=== PATIENT | female | born 1955 ===

== ENCOUNTER 2017-07-07 10:33 | Emergency (ER) | payer MEDICARE ==
[2017-07-07 11:20] VITALS: RESP 18; TEMP 98.3; BMI 28.3
--- NOTE | 2017-07-07 11:51 | ED PDOC ---
Arrival/HPI - General Chief Complaint: Trauma Time Seen by Provider: 07/07/17 11:16 Historian: Patient, Family - History of Present Illness Narrative History of Present Illness (Text): 07/07/17 11:32 A 61 year old female, whose past medical history includes diabetes, hypertension , and hyperlipidemia, presents to the emergency department complaining of right shoulder, right posterior ribs, and right mid back pain s/p fall yesterday. Patient reports fell to due weakness and pain in legs b/l. 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 Patient states hitting right side and notes head trauma. Patient denies any LOC, chest pain, shortness of breath, or any other complaints at this time. Also, patient mentions she does not take any bloodthinners. PMD: Dr. Menchaca Time/Duration: 24 hours Past Medical History - Provider Review Nursing Documentation Reviewed: Yes - Infectious Disease Hx of Infectious Diseases: None - Tetanus Immunization Tetanus Immunization: Up to Date - Cardiac Hx Hypertension: Yes - Pulmonary Hx Respiratory Disorders: Yes Hx Pneumonia: Yes Hx Sleep Apnea: Yes (Does not use CPAP anymore) - Neurological Hx Neurological Disorder: Yes Hx Dizziness: Yes - HEENT Hx HEENT Disorder: Yes (Wears Rx glasses) - Endocrine/Metabolic Hx Diabetes Mellitus Type 2: Yes - Musculoskeletal/Rheumatological Hx Falls: No - Psychiatric Hx Depression: No Hx Emotional Abuse: No Hx Physical Abuse: No Hx Substance Use: No - Surgical History Hx Hysterectomy: Yes Hx Joint Replacement: Yes (knees) Other/Comment: Breast reduction. Breast biopsy - Suicidal Assessment Feels Threatened In Home Enviroment: No Family/Social History - Physician Review Nursing Documentation Reviewed: Yes Family/Social History: No Known Family HX Smoking Status: Never Smoked Hx Alcohol Use: No Hx Substance Use: No Hx Substance Use Treatment: No Allergies/Home Meds Allergies/Adverse Reactions: Allergies No Known Allergies Allergy (Verified 03/25/16 13:28) Home Medications: Home Meds Medication Instructions Recorded Confirmed Amlodipine Besylate 10 mg PO DAILY 06/01/13 03/25/16 Aspirin 81 mg PO DAILY 06/01/13 03/25/16 Metformin HCl 1,000 mg PO BID 06/01/13 03/25/16 Carvedilol [Coreg] 25 mg PO DAILY 02/21/16 03/25/16 GlipiZIDE [Glipizide] 10 mg PO DAILY 02/21/16 03/25/16 Lisinopril [Zestril] 5 mg PO DAILY 02/21/16 03/25/16 Simvastatin 20 mg PO DAILY 02/21/16 03/25/16 Review of Systems - Physician Review All systems were reviewed & negative as marked: Yes - Review of Systems Respiratory: absent: SOB Cardiovascular: absent: Chest Pain Musculoskeletal: Back Pain (mid right back pain), Other (right shoulder pain, and right posterior rib pain.) Neurological: absent: Other (no LOC) Physical Exam Vital Signs Reviewed: Yes Vital Signs Temp Pulse Resp BP Pulse Ox 07/07/17 14:00 70 18 127/83 100 07/07/17 12:47 61 18 131/69 99 07/07/17 11:17 98.3 F 65 18 133/74 99 Temperature: Afebrile Blood Pressure: Normal Pulse: Regular Respiratory Rate: Normal Appearance: Positive for: Well-Appearing Pain Distress: None Mental Status: Positive for: Alert and Oriented X 3 - Systems Exam Head: Present: Atraumatic, Normocephalic Neck: Present: Normal Range of Motion. No: MIDLINE TENDERNESS Respiratory/Chest: Present: Clear to Auscultation, Good Air Exchange. No: Respiratory Distress, Accessory Muscle Use Cardiovascular: Present: Regular Rate and Rhythm, Normal S1, S2. No: Murmurs Abdomen: No: Tenderness, Distention, Peritoneal Signs Back: Present: Normal Inspection. No: Midline Tenderness Upper Extremity: Present: Normal Inspection. No: Cyanosis, Edema Lower Extremity: Present: Normal Inspection, NORMAL PULSES. No: Edema, CALF TENDERNESS, Vero's Sign Neurological: Present: GCS=15, CN II-XII Intact, Speech Normal Skin: Present: Warm, Dry, Normal Color. No: Rashes Psychiatric: Present: Alert, Oriented x 3, Normal Insight, Normal Concentration Medical Decision Making ED Course and Treatment: 07/07/17 11:36 Impression: 61 year old female with s/p fall right shoulder, right posterior ribs, and right-mid back pain. Physical exam shows no midline tenderness to neck /back; full ROM to upper/lower extremities. Differential Diagnosis included but are not limited to: Fall r/o Fracture Plan: -- Thoracic Spinal X-Ray -- Lumbar Spinal X-Ray -- Right Ribs and Chest X-Ray -- Right Shoulder X-Ray -- Reassess and disposition -- No LOC. No indication for CT Head Prior Visits: Notes and results from previous visits were reviewed. Patient was last seen in the emergency department on 03/25/2016 for nondominant left trapezius and elbow bite. Patient was discharged home. Progress Notes: 07/07/2017 12:41 Thoracic Spinal X-Ray IMPRESSION: Normal radiographs of the thoracic spine. Dictator: David Thomas MD 07/07/2017 12:47 Shoulder X-Ray IMPRESSION: Normal radiographs of the right shoulder. Dictator: David Thomas MD 07/07/2017 12:46 Ribs X-Ray IMPRESSION: Unremarkable radiographs of the chest and right ribs. No right rib fracture. Dictator: David Thomas MD 07/07/2017 12:45 Lumbar Spinal X-Ray IMPRESSION: Mild degenerative changes. Dictator: David Thomas MD 14:00 - Patient's xrays were reviewed with patient. Symptoms improved. She will follow up with primary care doctor as an outpatient. She was advised to return to the ED if symptoms worsen or any other concern. - RAD Interpretation Radiology Orders: 07/07/17 11:36 DORSAL (THORACIC) SPINE [RAD] Stat LS SPINE WITH OBL > 18 YRS OLD [RAD] Stat RIBS RIGHT & PA CHEST [RAD] Stat SHOULDER RIGHT [RAD] Stat - Medication Orders Current Medication Orders: Discontinued Medications Tramadol HCl (Ultram) 50 mg PO STAT STA Stop: 07/07/17 11:39 Last Admin: 07/07/17 12:05 Dose: 50 mg MARIELY Pain Assessment Document 07/07/17 12:05 HI (Rec: 07/07/17 12:28 HI [id number]) Pain Reassessment Is this a pain reassessment? No Sleep Is patient sleeping during reassessment? No Presence of Pain Presence of Pain Yes Location Left, Right or Bilateral Right Description Description Constant - Scribe Statement The provider has reviewed the documentation as recorded by the Tavo Josue Provider Scribe Attestation: All medical record entries made by the Scribe were at my direction and personally dictated by me. I have reviewed the chart and agree that the record accurately reflects my personal performance of the history, physical exam, medical decision making, and the department course for this patient. I have also personally directed, reviewed, and agree with the discharge instructions and disposition. Disposition/Present on Arrival - Present on Arrival Any Indicators Present on Arrival: No History of DVT/PE: No History of Uncontrolled Diabetes: No Urinary Catheter: No History of Decub. Ulcer: No History Surgical Site Infection Following: None - Disposition Have Diagnosis and Disposition been Completed?: Yes Diagnosis: Muscle strain, Fall Disposition: HOME/ ROUTINE Disposition Time: 14:00 Patient Plan: Discharge Condition: IMPROVED Discharge Instructions (ExitCare): Muscle Strain Additional Instructions: Ms Avila, thank you for letting us take care of you today. Your provider was Dr. Sanchez. You were treated for Muscular strain/contusion. The emergency medical care you received today was directed at your acute symptoms. If you were prescribed any medication, please fill it and take as directed. It may take several days for your symptoms to resolve. Return to the Emergency Department if your symptoms worsen, do not improve, or if you have any other problems. Please contact your doctor or call one of the physicians/clinics you have been referred to that are listed on the Patient Visit Information form that is included in your discharge packet. Bring any paperwork you were given at discharge with you along with any medications you are taking to your follow up visit. Our treatment cannot replace ongoing medical care by a primary care provider (PCP) outside of the emergency department. Thank you for allowing the [facility] team to be part of your care today. If you had an X-Ray or CT scan: A Radiologist will review the ED reading if any change in treatment is needed we will contact you. If you had a blood, urine, or wound culture: It will take several days for the results, if any change in treatment is needed we will contact you. If you had an STI test: It will take 48 hours for the results. Please call after 1 week if you have not heard back. Prescriptions: traMADol [Ultram] 50 mg PO Q6H PRN #10 tab PRN Reason: Pain, Moderate (4-7) Referrals: Adrien Menchaca MD [Family Provider] - Follow up with primary Forms: [employer] (Turkish), WORK NOTE
--- NOTE | 2017-07-07 12:43 | RAD ---
HISTORY: fall r/o fx COMPARISON: No prior. FINDINGS: BONES: Alignment maintained. No fracture. DISC SPACES: Normal. SOFT TISSUES: Normal. OTHER FINDINGS: None. IMPRESSION: Normal radiographs of the thoracic spine.
--- NOTE | 2017-07-07 12:47 | RAD ---
PROCEDURE: Radiographs of the Lumbar Spine. HISTORY: fall r/o fx COMPARISON: No prior. FINDINGS: BONES: Normal alignment. No listhesis. No fracture. DISC SPACES: Unremarkable. OTHER FINDINGS: Facet degeneration is seen at L5-S1 IMPRESSION: Mild degenerative changes
--- NOTE | 2017-07-07 12:48 | RAD ---
PROCEDURE: Radiographs of the Chest and Right Ribs. HISTORY: fall r/o fx COMPARISON: None available. TECHNIQUE: Frontal radiograph of the chest and multiple oblique radiographs of the right ribs were obtained. FINDINGS: RIGHT RIBS: No fracture or focal lesion visualized. LUNGS: Clear. PLEURA: No pneumothorax or pleural fluid. CARDIOVASCULAR: Normal sized heart. No pulmonary vascular congestion. OTHER FINDINGS: None. IMPRESSION: Unremarkable radiographs of the chest and right ribs. No right rib fracture.
--- NOTE | 2017-07-07 12:49 | RAD ---
PROCEDURE: Radiographs of the Right Shoulder HISTORY: fall r/o fx COMPARISON: 03/21/2017 FINDINGS: BONES: Normal. No fracture. JOINTS: Normal. Glenohumeral and acromioclavicular joints preserved. No osteoarthritis. SOFT TISSUES: Normal. OTHER FINDINGS: None. IMPRESSION: Normal radiographs of the right shoulder.
[2017-07-07 14:02] VITALS: BP 127/83; PULSE 70; O2SAT 100
== END 2017-07-07 14:02 | disposition home or self-care (01) ==
LOC: ED 10:33
DX: T14.8XXA Other injury of unspecified body region, initial encounter (principal); W01.0XXA Fall on same level from slipping, tripping and stumbling without subsequent striking against object, initial encounter; Y92.9 Unspecified place or not applicable

== ENCOUNTER 2017-07-31 18:51 | Inpatient (IN) | payer MEDICARE, OTHER ==
[2017-07-31 18:59] VITALS: BMI 27.4
[2017-07-31] MEDS ORDERED: Sodium Chloride 0.9% 1,000 ML IV ONE (19:27)
[2017-07-31 20:04] LABS: GRAN # 4.59 (1.4-6.5); GRAN % 85.8 % (50.0-68.0); HEMOGLOBIN 13.4 g/dL (12.0-16.0); LYMPH # 0.5 (1.2-3.4); LYMPH % 8.4 % (22.0-35.0); MEAN CELL VOLUME 79.1 fl (80.0-105.0); MEAN CORPUSCULAR HEMOGLOBIN 26.2 pg (25.0-35.0); MEAN CORPUSCULAR HGB CONC 33.2 g/dl (31.0-37.0); MEAN PLATELET VOLUME 10.6 fl (7.0-11.0); MONO # 0.3 (0.1-0.6); MONO % 5.8 % (1.0-6.0); RBC 5.11 10^6/uL (3.5-6.1); WHITE BLOOD COUNT 5.4 10^3/ul (4.5-11.0)
[2017-07-31 20:12] LABS: PH,URINE 5.5 (4.7-8.0); URINE APPEARANCE SL CLOUDY (CLEAR); URINE BILIRUBIN MODERATE (NEGATIVE); URINE BLOOD LARGE (NEGATIVE); URINE COLOR YELLOW (YELLOW); URINE GLUCOSE (UA) 500 mg/dL (NEGATIVE); URINE LEUKOCYTE ESTERASE SMALL Leu/uL (NEGATIVE); URINE PROTEIN 30 mg/dL (<30 mg/dL); URINE UROBILINOGEN 0.2 E.U./dL (<1 E.U./dL)
[2017-07-31 20:21] LABS: ALBUMIN 3.8 g/dL (3.0-4.8); ALT/SGPT 26 U/L (7-56); AST/SGOT 26 U/L (14-36); BLOOD UREA NITROGEN 38 mg/dL (7-21); CALCIUM 9.2 mg/dL (8.4-10.5); GFR AFRICAN-AMERICAN 46; GFR NON-AFRICAN AMERICAN 38
[2017-07-31 20:24] LABS: TROPONIN I < 0.01 ng/mL
[2017-07-31 20:34] LABS: URINE BACTERIA MANY (NEG); URINE RBC 25 - 30 /hpf (0-2)
[2017-07-31 20:35] LABS: FREE T4 1.33 ng/dL (0.78-2.19)
[2017-07-31 20:36] LABS: URINE AMORPHOUS SEDIMENT FEW; URINE COARSE GRANULAR CAST TRACE /hpf (0-2)
[2017-07-31 20:49] LABS: T3 0.95 ng/mL (0.97-1.69)
[2017-07-31] MEDS ORDERED: Iohexol 350 MG/100 ML VIAL ONE (21:06)
--- NOTE | 2017-07-31 21:08 | ED PDOC ---
Arrival/HPI - General Chief Complaint: Weakness/Neurological Deficit Time Seen by Provider: 07/31/17 19:03 Historian: Patient - History of Present Illness Narrative History of Present Illness (Text): 07/31/17 21:34 A 61 year old female, with n o significant past medical history, presents to the emergency department for a complaint of 1 week duration generalized weakness , mild dizziness, nausea, and questionable fever. She notes decreased appetite. The patient denies chills, chest pain, shortness of breath, dyspnea on exertion , cough, abdominal pain, vomiting, diarrhea, back pain, neck pain, urinary/ bowel changes, vaginal bleeding/ discharge, hematochezia, hematuria or any other complaint. PMD: Dr. Menchaca Time/Duration: 1 week Symptom Onset: Sudden Symptom Course: Unchanged Activities at Onset: Rest, Light Context: Home Past Medical History - Provider Review Nursing Documentation Reviewed: Yes - Infectious Disease Hx of Infectious Diseases: None - Tetanus Immunization Tetanus Immunization: Up to Date - Cardiac Hx Hypertension: Yes - Pulmonary Hx Respiratory Disorders: Yes Hx Pneumonia: Yes Hx Sleep Apnea: Yes (Does not use CPAP anymore) - Neurological Hx Neurological Disorder: Yes Hx Dizziness: Yes - HEENT Hx HEENT Disorder: Yes (Wears Rx glasses) - Endocrine/Metabolic Hx Diabetes Mellitus Type 2: Yes - Musculoskeletal/Rheumatological Hx Falls: No - Psychiatric Hx Depression: No Hx Emotional Abuse: No Hx Physical Abuse: No Hx Substance Use: No - Surgical History Hx Hysterectomy: Yes Hx Joint Replacement: Yes (knees) Other/Comment: Breast reduction. Breast biopsy - Anesthesia Hx Anesthesia: Yes Hx Anesthesia Reactions: No Hx Malignant Hyperthermia: No - Suicidal Assessment Feels Threatened In Home Enviroment: No Family/Social History - Physician Review Nursing Documentation Reviewed: Yes Family/Social History: No Known Family HX Smoking Status: Never Smoked Hx Alcohol Use: No Hx Substance Use: No Hx Substance Use Treatment: No Allergies/Home Meds Allergies/Adverse Reactions: Allergies No Known Allergies Allergy (Verified 03/25/16 13:28) Home Medications: Home Meds Medication Instructions Recorded Confirmed Amlodipine Besylate 10 mg PO DAILY 06/01/13 07/31/17 Aspirin 81 mg PO DAILY 06/01/13 07/31/17 Metformin HCl 1,000 mg PO BID 06/01/13 07/31/17 Carvedilol [Coreg] 25 mg PO DAILY 02/21/16 07/31/17 GlipiZIDE [Glipizide] 10 mg PO DAILY 02/21/16 07/31/17 Montelukast [Singulair] 1 tab PO DAILY 07/31/17 07/31/17 Review of Systems - Physician Review All systems were reviewed & negative as marked: Yes - Review of Systems Constitutional: Fevers, Other (Generalized weakness.). absent: Night Sweats Respiratory: absent: SOB, Cough Cardiovascular: absent: Chest Pain, [place] Gastrointestinal: Nausea, Appetite Changes (decreased appetite). absent: Abdominal Pain, Diarrhea, Vomiting, Hematochezia Genitourinary Female: absent: Hematuria, Urine Output Changes, Vaginal Bleeding , Vaginal Discharge Musculoskeletal: absent: Back Pain, Neck Pain Neurological: Dizziness Physical Exam Vital Signs Reviewed: Yes Vital Signs Temp Pulse Resp BP Pulse Ox 07/31/17 21:52 78 18 101/67 96 07/31/17 19:06 98.1 F 76 18 103/67 99 Temperature: Afebrile Blood Pressure: Normal Pulse: Regular Respiratory Rate: Normal Appearance: Positive for: Well-Appearing, Non-Toxic, Comfortable Pain Distress: None Mental Status: Positive for: Alert and Oriented X 3 Finger Stick Blood Glucose: 367 - Systems Exam Head: Present: Atraumatic, Normocephalic Pupils: Present: PERRL Extroacular Muscles: Present: EOMI Conjunctiva: Present: Normal Mouth: Present: Dry Neck: Present: Normal Range of Motion Respiratory/Chest: Present: Clear to Auscultation, Good Air Exchange. No: Respiratory Distress, Accessory Muscle Use Cardiovascular: Present: Regular Rate and Rhythm, Normal S1, S2. No: Murmurs Abdomen: Present: Tenderness (Mild diffuse abdominal tenderness) Back: Present: Normal Inspection Upper Extremity: Present: Normal Inspection. No: Cyanosis, Edema Lower Extremity: Present: Normal Inspection. No: Edema Neurological: Present: GCS=15, CN II-XII Intact, Speech Normal Skin: Present: Warm, Dry, Normal Color. No: Rashes Psychiatric: Present: Alert, Oriented x 3, Normal Insight, Normal Concentration Medical Decision Making ED Course and Treatment: 07/31/17 21:07 Impression: A 61 year old female presents to the emergency department for a complaint of generalized weakness, nausea, mild dizziness, and questionable fever. Plan: -- Abdomen/Pelvis CT -- EKG -- Chest X-ray -- Urine Culture -- Labs -- Zofran and IV Fluids -- Reassess and disposition Progress Notes: EKG: Ordered, reviewed, and independently interpreted the EKG. Rate : 73 BPM Rhythm : NSR Interpretation : Normal axis. Normal intervals. - Lab Interpretations Lab Results: 07/31/17 19:57 07/31/17 19:57 Lab Results 07/31/17 20:07: Urine Color Yellow, Urine Appearance Sl cloudy, Urine pH 5.5, Ur Specific T[place] >= 1.030, Urine Protein 30 H, Urine Glucose (UA) 500 H, Urine Ketones Trace H, Urine Blood Large H, Urine Nitrate Negative, Urine Bilirubin Moderate H, Urine Urobilinogen 0.2, Ur Leukocyte Esterase Small H, Urine RBC 25 - 30, Urine WBC 10 - 15, Ur Epithelial Cells 6 - 8, Amorphous Sediment Few, Urine Bacteria Many, Coarse Granular Casts Trace H, Urine Other Uyeast 07/31/17 19:57: Free T4 1.33, Total T3 0.95 L, TSH 3rd Generation 0.45 L 07/31/17 19:57: Sodium 137, Potassium 4.7, Chloride 97 L, Carbon Dioxide 24, Anion Gap 20, BUN 38 H, Creatinine 1.4 H, Est GFR ( Amer) 46, Est GFR ( Non-Af Amer) 38, Random Glucose 394 H* D, Calcium 9.2, Magnesium 2.2, Total Bilirubin 0.5, AST 26, ALT 26, Alkaline Phosphatase 110, Lactate Dehydrogenase 451, Total Creatine Kinase 24 L, Troponin I < 0.01, Total Protein 7.6, Albumin 3.8, Globulin 3.8, Albumin/Globulin Ratio 1.0 L 07/31/17 19:57: WBC 5.4 D, RBC 5.11, Hgb 13.4, Hct 40.4, MCV 79.1 L, MCH 26.2, MCHC 33.2, RDW 14.0, Plt Count 124, MPV 10.6, Gran % 85.8 H, Lymph % (Auto) 8.4 L, [place] % (Auto) 5.8, Eos % (Auto) 0.0 L, Baso % (Auto) 0.0, Gran # 4.59, Lymph # (Auto) 0.5 L, Treg[place] # (Auto) 0.3, Eos # (Auto) 0.0, Baso # (Auto) 0.00 07/31/17 19:18: POC Glucose (mg/dL) 367 H - RAD Interpretation Radiology Orders: 07/31/17 19:27 CHEST PORTABLE [RAD] Stat 07/31/17 20:20 ABD & PELVIS IV CONTRAST ONLY [CT] Stat - Medication Orders Current Medication Orders: Sodium Chloride (Sodium Chloride 0.9%) 1,000 mls @ 250 mls/hr IV .Q4H ONE Stop: 07/31/17 23:26 Last Admin: 07/31/17 19:51 Dose: 250 mls/hr eMAR Start Stop Document 07/31/17 19:51 RG (Rec: 07/31/17 19:52 [id number]) Intravenous Solution Start Date 07/31/17 Start Time 19:51 Ceftriaxone Sodium (Rocephin 1 Gram Ivpb) 1 gm in 100 mls @ 100 mls/hr IVPB DAILY HA PRN Reason: Protocol Discontinued Medications Ondansetron HCl (Zofran Inj) 4 mg IVP STAT STA Stop: 07/31/17 19:29 Last Admin: 07/31/17 19:40 Dose: 4 mg IVP Administration Document 07/31/17 19:40 RG (Rec: 07/31/17 19:40 RG [id number]) Charges for Administration # of IVP Administrations 1 Ondansetron HCl (Zofran Inj) 4 mg IVP STAT STA Stop: 07/31/17 21:36 Last Admin: 07/31/17 21:45 Dose: 4 mg IVP Administration Document 07/31/17 21:45 RG (Rec: 07/31/17 21:45 [id number]) Charges for Administration # of IVP Administrations 1 - Transfer of Care Patient signed out to Dr:: Jose Pending Radiology Studies:: CT Disposition/Present on Arrival - Present on Arrival Any Indicators Present on Arrival: Yes History of DVT/PE: No History of Uncontrolled Diabetes: Yes Urinary Catheter: No History of Decub. Ulcer: No History Surgical Site Infection Following: None - Disposition Have Diagnosis and Disposition been Completed?: Yes Diagnosis: UTI (urinary tract infection), Dehydration, Hyperglycemia Disposition: HOSPITALIZED Disposition Time: 23:30 Patient Plan: Admission Condition: STABLE Referrals: Adrien Menchaca MD [Primary Care Provider] - Follow up with primary Forms: [employer] (Turkish)
--- NOTE | 2017-07-31 22:38 | CT ---
EXAM: CT Abdomen and Pelvis With Intravenous Contrast EXAM DATE/TIME: 07/31/2017 8:20 PM CLINICAL HISTORY: 61 years old, female; Pain; Abdominal pain; Prior surgery; Surgery type: Hysterectomy; Additional info: Diffuse tenderness TECHNIQUE: Axial computed tomography images of the abdomen and pelvis with intravenous contrast. All CT scans at this facility use one or more dose reduction techniques, viz.: automated exposure control; ma/kV adjustment per patient size (including targeted exams where dose is matched to indication; i.e. head); or iterative reconstruction technique. Coronal and sagittal reformatted images were created and reviewed. CONTRAST: 94 mL of OMNI 350 administered intravenously. COMPARISON: No relevant prior studies available. FINDINGS: Tiny 2 mm hypoattenuating right hepatic lesion too small to accurately characterize, possible cyst. The spleen, pancreas and gallbladder are normal. There is an ill-defined area of low-attenuation in the right lateral kidney extending thru the cortex measuring approximately 2 x 1.7 cm. There is a small amount of adjacent fluid and stranding suggesting acute infectious/inflammatory process.There is a non obstructing right renal calculi. There is a rounded blind ending structure with peripheral sutures or calcification extending from the cecum - possible appendiceal remnant. Recommend correlation with surgical history. No evidence of appendicitis. Colonic diverticulosis without evidence of diverticulitis. Mild degenerative changes in the osseous structures. IMPRESSION: Ill-defined hypoattenuating area in the lateral right kidney with adjacent fluid and stranding. Findings suggest pyelonephritis. Recommend correlation with urinalysis. Underlying lesion would be difficult to completely exclude thus followup is recommended to ensure complete resolution.
--- NOTE | 2017-07-31 22:51 | ED PDOC ---
Physical Exam Vital Signs Temp Pulse Resp BP Pulse Ox 07/31/17 23:05 98.9 F 77 18 97/60 L 95 07/31/17 21:52 78 18 101/67 96 07/31/17 19:06 98.1 F 76 18 103/67 99 Finger Stick Blood Glucose: 367 Medical Decision Making ED Course and Treatment: 07/31/17 22:30 Case endorsed to me by Dr. Jefferson. Pending Abd/Pelvis CT, reassessment and disposition. Patient is a 61 year old female presents complaining of generalized weakness, nausea, mild dizziness, and questionable fever. EXAM: CT Abdomen and Pelvis With Intravenous Contrast Dictated and Authenticated by: Zaira Francis MD 07/31/2017 10:37 PM IMPRESSION: Ill-defined hypoattenuating area in the lateral right kidney with adjacent fluid and stranding. Findings suggest pyelonephritis. Recommend correlation with urinalysis. Underlying lesion would be difficult to completely exclude thus followup is recommended to ensure complete resolution 07/31/17 23:[address] Carnes who is aware and agrees with the plan. Accepts patient into his service. - Lab Interpretations Lab Results: 07/31/17 19:57 07/31/17 19:57 Lab Results 07/31/17 20:07: Urine Color Yellow, Urine Appearance Sl cloudy, Urine pH 5.5, Ur Specific Rudy >= 1.030, Urine Protein 30 H, Urine Glucose (UA) 500 H, Urine Ketones Trace H, Urine Blood Large H, Urine Nitrate Negative, Urine Bilirubin Moderate H, Urine Urobilinogen 0.2, Ur Leukocyte Esterase Small H, Urine RBC 25 - 30, Urine WBC 10 - 15, Ur Epithelial Cells 6 - 8, Amorphous Sediment Few, Urine Bacteria Many, Coarse Granular Casts Trace H, Urine Other Uyeast 07/31/17 19:57: Free T4 1.33, Total T3 0.95 L, TSH 3rd Generation 0.45 L 07/31/17 19:57: Sodium 137, Potassium 4.7, Chloride 97 L, Carbon Dioxide 24, Anion Gap 20, BUN 38 H, Creatinine 1.4 H, Est GFR ( Amer) 46, Est GFR ( Non-Af Amer) 38, Random Glucose 394 H* D, Calcium 9.2, Magnesium 2.2, Total Bilirubin 0.5, AST 26, ALT 26, Alkaline Phosphatase 110, Lactate Dehydrogenase 451, Total Creatine Kinase 24 L, Troponin I < 0.01, Total Protein 7.6, Albumin 3.8, Globulin 3.8, Albumin/Globulin Ratio 1.0 L 07/31/17 19:57: WBC 5.4 D, RBC 5.11, Hgb 13.4, Hct 40.4, MCV 79.1 L, MCH 26.2, MCHC 33.2, RDW 14.0, Plt Count 124, MPV 10.6, Gran % 85.8 H, Lymph % (Auto) 8.4 L, Sebastian % (Auto) 5.8, Eos % (Auto) 0.0 L, Baso % (Auto) 0.0, Gran # 4.59, Lymph # (Auto) 0.5 L, Sebastian # (Auto) 0.3, Eos # (Auto) 0.0, Baso # (Auto) 0.00 07/31/17 19:18: POC Glucose (mg/dL) 367 H - RAD Interpretation Radiology Orders: 07/31/17 19:27 CHEST PORTABLE [RAD] Stat 07/31/17 20:20 ABD & PELVIS IV CONTRAST ONLY [CT] Stat - Medication Orders Current Medication Orders: Ceftriaxone Sodium (Rocephin 1 Gram Ivpb) 1 gm in 100 mls @ 100 mls/hr IVPB DAILY HA PRN Reason: Protocol Discontinued Medications Sodium Chloride (Sodium Chloride 0.9%) 1,000 mls @ 250 mls/hr IV .Q4H ONE Stop: 07/31/17 23:26 Last Admin: 07/31/17 19:51 Dose: 250 mls/hr eMAR Start Stop Document 07/31/17 19:51 RG (Rec: 07/31/17 19:52 [id number]) Intravenous Solution Start Date 07/31/17 Start Time 19:51 Ondansetron HCl (Zofran Inj) 4 mg IVP STAT STA Stop: 07/31/17 19:29 Last Admin: 07/31/17 19:40 Dose: 4 mg IVP Administration Document 07/31/17 19:40 RG (Rec: 07/31/17 19:40 [id number]) Charges for Administration # of IVP Administrations 1 Ondansetron HCl (Zofran Inj) 4 mg IVP STAT STA Stop: 07/31/17 21:36 Last Admin: 07/31/17 21:45 Dose: 4 mg IVP Administration Document 07/31/17 21:45 HEATHER (Rec: 07/31/17 21:45 HEATHER [id number]) Charges for Administration # of IVP Administrations 1 - Scribe Statement The provider has reviewed the documentation as recorded by the Scribe Jair Sotomayor Provider Scribe Attestation: All medical record entries made by the Scribe were at my direction and personally dictated by me. I have reviewed the chart and agree that the record accurately reflects my personal performance of the history, physical exam, medical decision making, and the department course for this patient. I have also personally directed, reviewed, and agree with the discharge instructions and disposition. Disposition/Present on Arrival - Present on Arrival Any Indicators Present on Arrival: Yes History of DVT/PE: No History of Uncontrolled Diabetes: Yes Urinary Catheter: No History of Decub. Ulcer: No History Surgical Site Infection Following: None - Disposition Have Diagnosis and Disposition been Completed?: Yes Diagnosis: UTI (urinary tract infection), Dehydration, Hyperglycemia, Pyelonephritis Disposition: HOSPITALIZED Disposition Time: 23:59 Patient Plan: Admission Patient Problems: Current Active Problems Problem Status Onset UTI (urinary tract infection) Acute Dehydration Acute Hyperglycemia Acute Condition: STABLE Referrals: Adrien Menchaca MD [Primary Care Provider] - Follow up with primary Forms: [employer] (Polish)
[2017-08-01] MEDS ORDERED: cefTRIAXone 2 GM IN NS 2 GM/100 ML BAG IVPB STA (00:59)
--- NOTE | 2017-08-01 08:28 | RAD ---
HISTORY: Weakness. COMPARISON: No prior. FINDINGS: LUNGS: No active pulmonary disease. PLEURA: No significant pleural effusion identified, no pneumothorax apparent. CARDIOVASCULAR: No radiographic findings to suggest acute or significant cardiovascular disease. OSSEOUS STRUCTURES: No significant abnormalities. VISUALIZED UPPER ABDOMEN: Normal. OTHER FINDINGS: None. IMPRESSION: No active disease.
[2017-08-01] MEDS ORDERED: Sodium Chloride 0.9% 1,000 ML IV SCH (08:45)
[2017-08-01] MEDS: cefTRIAXone 1 gm 1 GM/100 ML BAG IVPB SCH (09:00)
--- NOTE | 2017-08-01 12:58 | CP.PCM.CON ---
History of Present Illness - History of Present Illness History of Present Illness: 61 year old female with PMH of HTN, dyslipidemia, DM, sleep apnea, S/P hysterectomy, history of breast reduction surgery came in to [facility] complaining of worsening generalized weakness for the past weak. It was associated with nausea and burning sensation on urination in the past 3-4 days and right sided flank pain and vague abdominal pain. She also has poor appetite. She denies headache or dizziness, no chest pain, no palpitations, no rhinorrhea, no cough, no sore throat, had chills, also with loose bowel movement. She was in the ED 3 weeks ago for a fall but was discharged from the ED. CT scan of the abdomen and pelvis suggested right sided pyelonephritis. Infectious Diseases consult is requested to further evaluate and manage. She denies being hospitalized in the past 3 months and has not been on antibiotics either. She has not traveled outside of [place] in the past 3 months. She has a dog that she has had for 2 years now. 07/31/17 21:34 A 61 year old female, with n o significant past medical history, presents to the emergency department for a complaint of 1 week duration generalized weakness , mild dizziness, nausea, and questionable fever. She notes decreased appetite. The patient denies chills, chest pain, shortness of breath, dyspnea on exertion , cough, abdominal pain, vomiting, diarrhea, back pain, neck pain, urinary/ bowel changes, vaginal bleeding/ discharge, hematochezia, hematuria or any other complaint. PMD: Dr. Menchaca Time/Duration: 1 week Symptom Onset: Sudden Symptom Course: Unchanged Activities at Onset: Rest, Light Context: Home 07/07/17 11:32 A 61 year old female, whose past medical history includes diabetes, hypertension , and hyperlipidemia, presents to the emergency department complaining of right shoulder, right posterior ribs, and right mid back pain s/p fall yesterday. Patient reports fell to due weakness and pain in legs b/l. 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 Patient states hitting right side and notes head trauma. Patient denies any LOC, chest pain, shortness of breath, or any other complaints at this time. Also, patient mentions she does not take any bloodthinners. PMD: Dr. Menchaca Time/Duration: 24 juanito Past Medical History - Provider Review Nursing Documentation Reviewed: Yes - Infectious Disease Hx of Infectious Diseases: None - Tetanus Immunization Tetanus Immunization: Up to Date - Cardiac Hx Hypertension: Yes - Pulmonary Hx Respiratory Disorders: Yes Hx Pneumonia: Yes Hx Sleep Apnea: Yes (Does not use CPAP anymore) - Neurological Hx Neurological Disorder: Yes Hx Dizziness: Yes - HEENT Hx HEENT Disorder: Yes (Wears Rx glasses) - Endocrine/Metabolic Hx Diabetes Mellitus Type 2: Yes - Musculoskeletal/Rheumatological Hx Falls: No - Psychiatric Hx Depression: No Hx Emotional Abuse: No Hx Physical Abuse: No Hx Substance Use: No - Surgical History Hx Hysterectomy: Yes Hx Joint Replacement: Yes (knees) Other/Comment: Breast reduction. Breast biopsy - Anesthesia Hx Anesthesia: Yes Hx Anesthesia Reactions: No Hx Malignant Hyperthermia: No - Suicidal Assessment Feels Threatened In Home Enviroment: No Family/Social History - Physician Review Nursing Documentation Reviewed: Yes Family/Social History: No Known Family HX Smoking Status: Never Smoked Hx Alcohol Use: No Hx Substance Use: No Hx Substance Use Treatment: No Allergies/Home Meds Allergies/Adverse Reactions: Allergies No Known Allergies Allergy (Verified 03/25/16 13:28) Review of Systems - Review of Systems All systems: reviewed and no additional remarkable complaints except (as per HPI ) Past Patient History - Infectious Disease Hx of Infectious Diseases: None - Tetanus Immunizations Tetanus Immunization: Up to Date - Past Social History Smoking Status: Never Smoked - CARDIAC Hx Hypertension: Yes - PULMONARY Hx Respiratory Disorders: Yes Hx Pneumonia: Yes Hx Sleep Apnea: Yes (Does not use CPAP anymore) - NEUROLOGICAL Hx Dizziness: Yes - HEENT Hx HEENT Problems: Yes (Wears Rx glasses) - ENDOCRINE/METABOLIC Hx Diabetes Mellitus Type 2: Yes - MUSCULOSKELETAL/RHEUMATOLOGICAL Hx Falls: Yes - PSYCHIATRIC Hx Depression: No Hx Emotional Abuse: No Hx Physical Abuse: No - SURGICAL HISTORY Hx Hysterectomy: Yes Other/Comment: right knee surgery - ANESTHESIA Hx Anesthesia: Yes Hx Anesthesia Reactions: No Hx Malignant Hyperthermia: No Meds Allergies/Adverse Reactions: Allergies Allergy/AdvReac Type Severity Reaction Status Date / Time No Known Allergies Allergy Verified 03/25/16 13:28 - Medications Medications: Current Medications Acetaminophen (Tylenol 325mg Tab) 650 mg PO Q4H PRN PRN Reason: Pain, Mild (1-3) Last Admin: 08/01/17 08:50 Dose: 650 mg Amlodipine Besylate (Norvasc) 10 mg PO DAILY PENDING SALE TO [facility] Last Admin: 08/01/17 09:01 Dose: 10 mg Aspirin (Aspirin Chewable) 81 mg PO DAILY PENDING SALE TO [facility] Last Admin: 08/01/17 09:01 Dose: 81 mg Carvedilol (Coreg) 25 mg PO DAILY PENDING SALE TO [facility] Last Admin: 08/01/17 09:00 Dose: 25 mg Ceftriaxone Sodium (Rocephin 1 Gram Ivpb) 1 gm in 100 mls @ 100 mls/hr IVPB DAILY PENDING SALE TO [facility] PRN Reason: Protocol Last Admin: 08/01/17 09:00 Dose: 100 mls/hr Sodium Chloride (Sodium Chloride 0.9%) 1,000 mls @ 100 mls/hr IV .Q10H PENDING SALE TO [facility] Stop: 08/02/17 04:44 Last Admin: 08/01/17 08:51 Dose: 100 mls/hr Montelukast Sodium (Singulair) 10 mg PO DAILY PENDING SALE TO [facility] Last Admin: 08/01/17 09:01 Dose: 10 mg Physical Exam - Constitutional Appears: Non-toxic - Head Exam Head Exam: NORMAL INSPECTION - ENT Exam ENT Exam: Mucous Membranes Moist - Neck Exam Neck exam: Negative for: Lymphadenopathy, Meningismus - Respiratory Exam Respiratory Exam: absent: Rales, Rhonchi - Cardiovascular Exam Cardiovascular Exam: +S1, +S2 - GI/Abdominal Exam GI & Abdominal Exam: Soft, Tenderness (mild, lower abdominal area). absent: Distended, Firm, Guarding, Rebound, Rigid - Back Exam Back exam: CVA tenderness (R) Results - Vital Signs Recent Vital Signs: Last Vital Signs Temp 99.2 F 08/01/17 06:00 Pulse 95 H 08/01/17 06:00 Resp 20 08/01/17 06:00 BP 119/79 08/01/17 09:01 Pulse Ox 96 08/01/17 06:00 - Labs Result Diagrams: 07/31/17 19:57 07/31/17 19:57 Labs: Laboratory Results - last 24 hr 08/01/17 06:18 POC Glucose (mg/dL) 181 H Assessment & Plan - Assessment and Plan (Free Text) Plan: Assessment Consider right sided acute pyelonephritis; questionable perinephric fluid collection HTN dyslipidemia DM sleep apnea S/P hysterectomy history of breast reduction surgery Plan Started patient on Rocephin pending blood and urine cx; reviewed CT A/P - since there is a probable perinephric fluid collection ,would recommend renal ultrasound in 2-3 days to re-evaluate will monitor clinically
--- NOTE | 2017-08-01 18:33 | HP ---
DATE OF EXAM: 08/01/2017 CHIEF COMPLAINT AND HISTORY OF PRESENT ILLNESS: This is a 61-year-old female who is coming to the hospital complaining of 9 days of having decreased appetite. She was having back pain. She says she was getting dizzy. She also was concerned that her urine was foamy. The patient came in for evaluation. She denies any fevers, no dysuria. She has no headaches or dizziness. No nausea, no vomiting, no abdominal pain, no weakness in the arms or the legs. She was not measuring her temperature at home. She has no chills. REVIEW OF SYSTEMS: All other review of symptoms are within normal limits except what was mentioned. ALLERGIES: NO KNOWN DRUG ALLERGIES. HOME MEDICATIONS: Amlodipine, aspirin, metformin, carvedilol, glipizide, and Singulair. PAST MEDICAL HISTORY: Diabetes type 2; obstructive sleep apnea, does not use CPAP at home; hypertension. PAST SURGICAL HISTORY: 1. Breast reduction. 2. Breast biopsy. 3. Knee surgery. 4. Hysterectomy. SOCIAL HISTORY: She does not smoke, drink, or use drugs. FAMILY HISTORY: Noncontributory. PHYSICAL EXAMINATION: VITAL SIGNS: Temperature is 99.2, pulse of 95, blood pressure 116/79, respirations 20, O2 saturation 96%. Height is 5 feet 4 inches, weight 160 pounds, BMI is 27.5. GENERAL: The patient lying in bed, uncomfortable, and in no acute distress. HEENT: Atraumatic and normocephalic. Anicteric sclerae. Moist mucosa. [place] conjunctivae. No oral lesions. NECK: No JVD, anterior and posterior adenopathy, thyromegaly, or bruits. CARDIOVASCULAR: S1 and S2 regular. No murmur, rubs, or gallop. LUNGS: Clear to auscultation bilaterally. No wheezes, rales, or rhonchi. ABDOMEN: Bowel sounds are positive. Soft, nontender and nondistended. No hepatosplenomegaly. No rebound and no guarding. EXTREMITIES: No cyanosis, clubbing, or edema. NEUROLOGIC: No facial asymmetry. Tongue is midline. No uvula deviation. Power is 5/5 upper extremity and lower extremity. Sensation intact in upper extremity and lower extremity. PSYCHIATRIC: She is awake, alert and oriented x3. No anxiety or depression. She has normal affect. GENITOURINARY: No CVA tenderness. VASCULAR: 2+ pulses in the carotid pulses and pedal pulses. SKIN: No erythema or nodules. SPINE: Shows normal curvature. LABORATORY DATA: She has a sodium of 137, potassium is 4.7, creatinine is 1.4. Albumin is 3.8. TSH is 0.45. Glucose is 394. White count of 5.4, hemoglobin is 13.4, platelet count 124. Urine shows bilirubin is moderate, esterase is small, blood is large, glucose is 500, wbc's [address] of the abdomen and pelvis done shows ill-defined hypoattenuation area in the right kidney. ASSESSMENT: 1. Right pyelonephritis. 2. Diabetes type 2. 3. Acute kidney injury. PLAN: The patient has back pain, has abnormal UA and a CT that shows pyelonephritis. The patient's chest x-ray has no infiltrates. There is an EKG that shows heart rate of 73, sinus rhythm, normal axis. The patient's creatinine is elevated. We will place the patient on IV fluids. She is going to be started on antibiotics. She was given a dose of Rocephin, I will continue. The patient is going to need evaluation by Infectious Disease. I will place her on fingerstick coverage. She will be placed on Tylenol for her back pain. She is going to continue aspirin and carvedilol. She is on Norvasc for her hypertension. She is on Singulair, this will be continued. We will wait for culture results and if possible, we will change to p.o. antibiotics. Lester Carnes MD
--- NOTE | 2017-08-01 19:04 | CARD ---
APPROVED REPORT EKG Measurement Heart [id number] <Conclusion> Normal sinus rhythm Voltage criteria for left ventricular hypertrophy Abnormal ECG
[2017-08-01 22:56] VITALS: RESP 20
[2017-08-02] MEDS: Insulin Reg-LOW-Coverage SC SCH ×4 (07:01→17:18)
[2017-08-02 07:34] LABS: HEMOGLOBIN 12.9 g/dL (12.0-16.0); MEAN CELL VOLUME 77.9 fl (80.0-105.0); MEAN CORPUSCULAR HEMOGLOBIN 25.7 pg (25.0-35.0); MEAN PLATELET VOLUME 10.7 fl (7.0-11.0); RBC 5.02 10^6/uL (3.5-6.1); RED CELL DISTRIBUTION WIDTH 13.9 % (11.5-14.5); WHITE BLOOD COUNT 5.6 10^3/ul (4.5-11.0)
[2017-08-02 07:49] LABS: ALBUMIN 3.6 g/dL (3.0-4.8); ALT/SGPT 29 U/L (7-56); AST/SGOT 33 U/L (14-36); BLOOD UREA NITROGEN 15 mg/dL (7-21); CALCIUM 9.3 mg/dL (8.4-10.5); GFR AFRICAN-AMERICAN > 60; GFR NON-AFRICAN AMERICAN > 60
--- NOTE | 2017-08-02 09:27 | PN ---
DATE: 08/02/2017 SUBJECTIVE: The patient has no complaints of any chest pain. No shortness of breath. No headaches or dizziness. PHYSICAL EXAMINATION: VITAL SIGNS: Temperature is 98.8, pulse of 88, blood pressure is 128/88, respirations 20. GENERAL: The patient is lying in bed, flat, comfortable. HEENT: No oral lesion. Anicteric sclerae. Moist mucosa. NECK: No JVD, adenopathy, or thyromegaly. CARDIOVASCULAR: S1 and S2, regular. No murmurs, rubs, or gallops. LUNGS: Clear to auscultation bilaterally. No wheeze, rales, or rhonchi. ABDOMEN: Bowel sounds are positive, soft, nontender and nondistended. EXTREMITIES: No cyanosis, clubbing or edema. LABORATORY DATA: White count of 5.6, hemoglobin 12.9. Creatinine 0.6. Urine culture showed gram-negative rods, 2 species. ASSESSMENT: 1. Right pyelonephritis. 2. Diabetes type 2. 3. Acute kidney injury. PLAN: The patient is currently feeling better. Her kidney function is improved. Her creatinine is 0.6 and back to baseline. She has cultures that are positive. The final culture results are pending. She is currently on Rocephin for antibiotics. She is on Singulair. She is going to continue with the Coreg. She is on insulin sliding scale for sugars. Her sugars are elevated. I will start her glipizide and metformin that she is taking. I did hold it because the kidney function was abnormal and these are renally excreted. The patient is on a carbohydrate consistent diet. Lester Carnes MD
[2017-08-02] MEDS: cefTRIAXone 1 gm 1 GM/100 ML BAG IVPB SCH (09:30)
--- NOTE | 2017-08-02 10:43 | PN ---
DATE: 08/02/2017 SUBJECTIVE: The patient is in bed in no acute distress and seen earlier in 578, bed 2. OBJECTIVE: VITAL SIGNS: On exam, temperature is 98, blood pressure is 120/80, respiratory rate of 20, heart rate of 88. HEENT: Examination is unremarkable. NECK: Supple. LUNGS: Have decreased breath sounds. HEART: Normal S1, S2. ABDOMEN: Soft, nontender. DATA: Laboratory examination reveals a white count of 5.6, hemoglobin of 12. Chemistries reveal a BUN of 15, creatinine of 0.6. Urinalysis is noted, 10 to 15 wbc's. Microbiology reveals the urine culture with gram-negative julissa. Review of orders reveals the patient to be on ceftriaxone. ASSESSMENT AND PLAN: This is a 61-year-old female with hypertension, dyslipidemia, diabetes, sleep apnea, history of hysterectomy, history of breast reduction surgery admitted with a right-sided acute pyelonephritis with a gram-negative julissa, on ceftriaxone, questionable perinephric fluid collection, awaiting for identification if there is gram-negative julissa, on ceftriaxone. We will follow with you. Barry Tovar MD
[2017-08-03] MEDS: Insulin Reg-LOW-Coverage SC SCH ×3 (00:46→12:01)
[2017-08-03 07:54] VITALS: BP 114/79; PULSE 98; TEMP 99.9; O2SAT 96
[2017-08-03] MEDS: cefTRIAXone 1 gm 1 GM/100 ML BAG IVPB SCH (09:53)
--- NOTE | 2017-08-03 14:49 | PN ---
DATE: 08/03/2017 SUBJECTIVE: The patient is in bed, in no acute distress, nontoxic. OBJECTIVE: VITAL SIGNS: On exam, temperature is 99.9 and temperature day before yesterday was 101, blood pressure is 114/70, respiratory rate of 18. HEENT: Examination is unremarkable. NECK: Supple. LUNGS: Have decreased breath sounds. HEART: Normal S1, S2. ABDOMEN: Soft. DATA: Laboratory examination reveals a white count of 5.6, hemoglobin of 12, platelets of 141. BUN of 15, creatinine of 0.6. Urinalysis is noted and Microbiology reveals E. coli in the urine, pansensitive to E. coli. ASSESSMENT AND PLAN: This is a 61-year-old female with hypertension, dyslipidemia, diabetes, sleep apnea, history of hysterectomy, breast reduction surgery admitted with right-sided acute pyelonephritis with E. coli and who had a perinephric fluid collection, currently on ceftriaxone which requires renewal. The E-coli in the urine is pansensitive including to cefazolin and quinolones. Barry Tovar MD
--- NOTE | 2017-08-04 00:14 | DS ---
HOSPITAL COURSE: This is a 61-year-old female who come to the hospital and was found to have right-sided pyelonephritis. She was placed on IV antibiotics and had improvement of her symptoms. The patient was having back pain that has also improved. She was found to have an E. coli that was fairly sensitive. She is walking well and the plan is for her to go to Transitional Care Unit. She has no complaints of any headaches or dizziness. No nausea. No vomiting. PHYSICAL EXAMINATION: VITAL SIGNS: Temperature is 99.9, pulse of 98, blood pressure 114/79, respirations 20. GENERAL: The patient is lying in bed, flat, comfortable. HEENT: No oral lesion. Anicteric sclerae. Moist mucosa. NECK: No JVD, adenopathy, or thyromegaly. CARDIOVASCULAR: S1 and S2, regular. No murmurs, rubs, or gallops. LUNGS: Clear to auscultation bilaterally. No wheeze, rales, or rhonchi. ABDOMEN: Bowel sounds are positive, soft, nontender and nondistended. EXTREMITIES: no cyanosis, clubbing or edema. ASSESSMENT: 1. Right-sided pyelonephritis secondary to Escherichia coli. 2. Diabetes type 2. 3. Acute kidney injury, improved. PLAN: The patient is currently on Glucotrol for diabetes as well as metformin. She is on insulin sliding scale with fingerstick coverage. Her sugars have been elevated and above 200. She is on aspirin. She is going to continue with carvedilol. She is on Tylenol as needed. She is on a carbohydrate consistent diet. She will be discharged to the Transitional Care Unit. Lester Carnes MD
== END 2017-08-03 15:04 | DRG 690 ==
LOC: ED 18:51 → ERH 23:54 → 5RNO 08-01 01:08 → 5RSO 08-01 17:26
PROVIDERS: ADMIT Internal Medicine Nephrology; ATTEND Internal Medicine Nephrology
DX: N12 Tubulo-interstitial nephritis, not specified as acute or chronic (principal); N17.9 Acute kidney failure, unspecified; E11.65 Type 2 diabetes mellitus with hyperglycemia; B96.20 Unspecified Escherichia coli [E. coli] as the cause of diseases classified elsewhere; E78.5 Hyperlipidemia, unspecified; E86.0 Dehydration; G47.33 Obstructive sleep apnea (adult) (pediatric); I10 Essential (primary) hypertension; Z79.82 Long term (current) use of aspirin; Z87.01 Personal history of pneumonia (recurrent); Z90.710 Acquired absence of both cervix and uterus; Z96.653 Presence of artificial knee joint, bilateral

== ENCOUNTER 2017-08-03 15:07 | Inpatient (IN) | payer OTHER ==
[2017-08-03] MEDS: Insulin Reg-LOW-Coverage SC SCH ×2 (18:41→22:38)
[2017-08-04] MEDS: cefTRIAXone 1 gm 1 GM/100 ML BAG IVPB SCH (05:31)
[2017-08-04 06:33] VITALS: BMI 25.4
[2017-08-04] MEDS: Insulin Reg-LOW-Coverage SC SCH ×4 (07:26→22:02)
[2017-08-04] MEDS ORDERED: cefTRIAXone 1 gm 1 GM/100 ML BAG IVPB SCH (10:00)
--- NOTE | 2017-08-04 12:41 | CP.PCM.CON ---
History of Present Illness - History of Present Illness History of Present Illness: 61 year old female with PMH of HTN, dyslipidemia, DM, sleep apnea, S/P hysterectomy, history of breast reduction surgery initially came in to [facility] [place] because of right flank pain, abdominal pain and nausea with poor appetite. She was found to have right sided pyelonephritis with associated possible perinephric collection. She has been doing well with antibiotics and is now transferred to [facility] for continued medical therapy and physical rehab. Infectious diseases consult is requested to further evaluate and manage. She is still complaining of right flank pain but a little better. She is for renal ultrasound today. She has no fever, no nausea, eating a little better, no SOB, no cough. Review of Systems - Review of Systems All systems: reviewed and no additional remarkable complaints except (as per HPI ) Past Patient History - Infectious Disease Hx of Infectious Diseases: None - Tetanus Immunizations Tetanus Immunization: Up to Date - Past Social History Smoking Status: Never Smoked - CARDIAC Hx Hypertension: Yes - PULMONARY Hx Respiratory Disorders: Yes Hx Pneumonia: Yes Hx Sleep Apnea: Yes (Does not use CPAP anymore) - NEUROLOGICAL Hx Dizziness: Yes - HEENT Hx HEENT Problems: Yes (Wears Rx glasses) - ENDOCRINE/METABOLIC Hx Diabetes Mellitus Type 2: Yes - MUSCULOSKELETAL/RHEUMATOLOGICAL Hx Falls: Yes - PSYCHIATRIC Hx Depression: No Hx Emotional Abuse: No Hx Physical Abuse: No - SURGICAL HISTORY Hx Hysterectomy: Yes Other/Comment: right knee surgery - ANESTHESIA Hx Anesthesia: Yes Hx Anesthesia Reactions: No Hx Malignant Hyperthermia: No Meds Allergies/Adverse Reactions: Allergies Allergy/AdvReac Type Severity Reaction Status Date / Time No Known Allergies Allergy Verified 03/25/16 13:28 - Medications Medications: Current Medications Acetaminophen (Tylenol 325mg Tab) 650 mg PO Q4H PRN PRN Reason: pain and temp above 101 Amlodipine Besylate (Norvasc) 10 mg PO DAILY [facility] Aspirin (Aspirin Chewable) 81 mg PO 0800 [facility] Carvedilol (Coreg) 25 mg PO DAILY [facility] Docusate Sodium (Colace) 100 mg PO BID [facility] Last Admin: 08/03/17 18:40 Dose: 100 mg Glipizide (Glucotrol) 10 mg PO BRK [facility] Ceftriaxone Sodium (Rocephin 1 Gram Ivpb) 1 gm in 100 mls @ 100 mls/hr IVPB 0600 [facility] PRN Reason: Protocol Insulin Human Regular (Humulin R Low) 0 units SC ACHS [facility] PRN Reason: Protocol Last Admin: 08/03/17 18:41 Dose: 1 units Metformin HCl (Glucophage) 1,000 mg PO BRKDIN [facility] Last Admin: 08/03/17 17:52 Dose: 1,000 mg Montelukast Sodium (Singulair) 1 mg PO HS [facility] Physical Exam - Constitutional Appears: Chronically Ill - Head Exam Head Exam: NORMAL INSPECTION - ENT Exam ENT Exam: Mucous Membranes Moist - Neck Exam Neck exam: Negative for: Lymphadenopathy, Meningismus - Respiratory Exam Respiratory Exam: Decreased Breath Sounds - Cardiovascular Exam Cardiovascular Exam: +S1, +S2 - GI/Abdominal Exam GI & Abdominal Exam: Soft. absent: Tenderness Results - Vital Signs Recent Vital Signs: Last Vital Signs Temp 98.4 F 08/03/17 15:12 Pulse 78 08/03/17 15:12 Resp 20 08/03/17 15:12 BP 115/70 08/03/17 15:12 Pulse Ox - Labs Labs: Laboratory Results - last 24 hr 08/03/17 17:41 POC Glucose (mg/dL) 218 H Assessment & Plan - Assessment and Plan (Free Text) Plan: Assessment Consider right sided acute pyelonephritis, grew E. coli in the urine; questionable perinephric fluid collection HTN dyslipidemia DM sleep apnea S/P hysterectomy history of breast reduction surgery Plan continue Rocephin day 4 to complete 10-14 days of therapy; reviewed CT A/P - since there is a probable perinephric fluid collection ,would recommend renal ultrasound today will continue to monitor clinically
--- NOTE | 2017-08-04 14:33 | US ---
PROCEDURE: Ultrasound of the Kidneys HISTORY: right sided perinephric collection COMPARISON: 07/31/2017 CT abdomen and pelvis. TECHNIQUE: Sonogram of the kidneys. FINDINGS: RIGHT KIDNEY: Measures: 5.8 x 5.9 x 13.2 cm. Normal in size, contour and echogenicity. No stone, solid mass lesion or hydronephrosis visualized. LEFT KIDNEY: Measures: 5.3 x 5.4 x 12.0 cm. Normal in size, contour and echogenicity. No stone, solid mass lesion or hydronephrosis visualized. OTHER FINDINGS: None. IMPRESSION: Unremarkable renal sonogram. Findings in the right kidney apparent on the recent CT scan cannot be reproduced on the current examination.
[2017-08-05] MEDS: cefTRIAXone 1 gm 1 GM/100 ML BAG IVPB SCH (05:34)
[2017-08-05] MEDS: Insulin Reg-LOW-Coverage SC SCH ×4 (06:48→22:08)
--- NOTE | 2017-08-05 09:04 | HP ---
DATE OF EXAM: 08/04/2017 CHIEF COMPLAINT AND HISTORY OF PRESENT ILLNESS: This is a 61-year-old female who had come into the hospital because of right-sided pyelonephritis. The patient was treated with IV antibiotics and had improvement of her symptoms. She was transferred to the Transitional Care Unit for rehab. She has no complaints of any headaches or dizziness. She was having difficulty with walking, the walking is better. She had back pain that has also improved. She has no fevers or chills. No headaches. PHYSICAL EXAMINATION: VITAL SIGNS: Temperature is 98.4, pulse of 78, blood pressure 115/70, respirations 20, O2 saturation 99%. GENERAL: The patient is lying in bed, flat, comfortable. HEENT: No oral lesion. Anicteric sclerae. Moist mucosa. NECK: No JVD, adenopathy, or thyromegaly. CARDIOVASCULAR: S1 and S2, regular. No murmurs, rubs, or gallops. LUNGS: Clear to auscultation bilaterally. No wheeze, rales, or rhonchi. ABDOMEN: Bowel sounds are positive, soft, nontender and nondistended. EXTREMITIES: No cyanosis, clubbing or edema. ASSESSMENT: 1. Right-sided pyelonephritis. 2. Diabetes type 2. 3. Acute kidney injury, resolved. PLAN: The patient's initial H and P was reviewed by me as well as the medical records. The patient is going to continue with Colace for constipation, is on aspirin. The patient is on metformin for diabetes. She is also on Glucotrol, this will be continued. She is on Rocephin for antibiotics. She had a very sensitive E. coli UTI/pyelonephritis. The patient also had a culture that shows Staph aureus. ID is following the patient. Lester Carnes MD
[2017-08-05] MEDS ORDERED: Insulin Regular 1 UNITS/0.01 ML ML SC STA (12:38)
--- NOTE | 2017-08-05 14:05 | CP.PCM.PN ---
Subjective - Date & Time of Evaluation Date of Evaluation: 08/05/17 Time of Evaluation: 11:05 - Subjective Subjective: No fevers, no flank pain currently, no nausea, appetite is better, has more energy. Objective - Vital Signs/Intake and Output Vital Signs (last 24 hours): Temp Pulse Resp BP Pulse Ox 98.6 F 74 18 123/84 97 08/04/17 17:10 08/04/17 17:10 08/04/17 17:10 08/04/17 17:10 08/04/17 17:10 - Medications Medications: Current Medications Acetaminophen (Tylenol 325mg Tab) 650 mg PO Q4H PRN PRN Reason: pain and temp above 101 Amlodipine Besylate (Norvasc) 10 mg PO DAILY [facility] Last Admin: 08/04/17 10:22 Dose: 10 mg Aspirin (Aspirin Chewable) 81 mg PO 0800 [facility] Last Admin: 08/04/17 07:49 Dose: 81 mg Carvedilol (Coreg) 25 mg PO DAILY [facility] Last Admin: 08/04/17 10:22 Dose: 25 mg Docusate Sodium (Colace) 100 mg PO BID [facility] Last Admin: 08/04/17 17:10 Dose: 100 mg Glipizide (Glucotrol) 10 mg PO BRK [facility] Last Admin: 08/04/17 07:49 Dose: 10 mg Insulin Human Regular (Humulin R Low) 0 units SC ACHS [facility] PRN Reason: Protocol Last Admin: 08/04/17 22:02 Dose: Not Given Metformin HCl (Glucophage) 1,000 mg PO BRKDIN [facility] Last Admin: 08/04/17 17:09 Dose: 1,000 mg Montelukast Sodium (Singulair) 10 mg PO HS [facility] Last Admin: 08/04/17 22:02 Dose: 10 mg - Constitutional Appears: Non-toxic - Head Exam Head Exam: NORMAL INSPECTION - Neck Exam Neck Exam: absent: Meningismus - Respiratory Exam Respiratory Exam: absent: Rales - Cardiovascular Exam Cardiovascular Exam: +S1, +S2 - GI/Abdominal Exam GI & Abdominal Exam: Soft. absent: Tenderness Assessment and Plan - Assessment and Plan (Free Text) Plan: Assessment Consider right sided acute pyelonephritis, grew E. coli in the urine; questionable perinephric fluid collection on CT A/P which is not seen on follow up renal ultrasound HTN dyslipidemia DM sleep apnea S/P hysterectomy history of breast reduction surgery Plan continue Rocephin day 5 to complete 10-14 days of therapy; reviewed CT A/P; reviewed renal ultrasound from yesterday will continue to monitor clinically
[2017-08-05 17:30] VITALS: PULSE 75; RESP 18; TEMP 98.6; O2SAT 98
--- NOTE | 2017-08-06 05:59 | DS ---
HISTORY OF PRESENT ILLNESS: This is a 61-year-old female who come in to the hospital, was found to have right-sided pyelonephritis. The patient was placed on IV antibiotics and had improvement of her symptoms. She then was transferred to the Transitional Care Unit for rehab. The patient had an ultrasound done that was unremarkable. The patient is going to be discharged home tomorrow. She is going to need further antibiotics. She is on day #5 out of 10 of antibiotics. The patient is asking for being discharged tomorrow. We will speak to ID regarding oral antibiotics. PHYSICAL EXAMINATION: VITAL SIGNS: Temperature is 98.6, pulse of 74, blood pressure 123/84, respirations 18. GENERAL: The patient is lying in bed, flat, comfortable. HEENT: No oral lesion. Anicteric sclerae. Moist mucosa. NECK: No JVD, adenopathy, or thyromegaly. CARDIOVASCULAR: S1 and S2, regular. No murmurs, rubs, or gallops. LUNGS: Clear to auscultation bilaterally. No wheeze, rales, or rhonchi. ABDOMEN: Bowel sounds are positive, soft, nontender and nondistended. EXTREMITIES: No cyanosis, clubbing or edema. ASSESSMENT: 1. Right-sided pyelonephritis. 2. Diabetes type 2. 3. Acute kidney injury, resolved. PLAN: The patient is on Norvasc for hypertension. She is on Singulair. She is going to continue with Colace for constipation. She is on metformin for diabetes. CONDITION: Stable. ACTIVITIES: Increase as tolerated. Lester Carnes MD
[2017-08-06] MEDS: Insulin Reg-LOW-Coverage SC SCH (06:30)
[2017-08-06 09:35] VITALS: BP 116/74
== END 2017-08-06 11:17 | disposition home or self-care (01) | DRG 690 ==
LOC: TRCU 15:07
PROVIDERS: ADMIT Internal Medicine Nephrology; ATTEND Internal Medicine Nephrology
DX: N10 Acute pyelonephritis (principal); B96.20 Unspecified Escherichia coli [E. coli] as the cause of diseases classified elsewhere; N17.9 Acute kidney failure, unspecified; E11.9 Type 2 diabetes mellitus without complications; I10 Essential (primary) hypertension; K59.00 Constipation, unspecified; E78.5 Hyperlipidemia, unspecified; G47.30 Sleep apnea, unspecified; Z90.710 Acquired absence of both cervix and uterus